=== PATIENT | female | born 1950 | race Two or more races ===

== ENCOUNTER 2021-11-19 09:30 | Inpatient (IN) | payer OTHER ==
[~2021-11-19] VITALS: Ht 167.6 cm; Wt 77.1 kg
[2021-11-19] MEDS ORDERED: KEP PO (13:04)
[2021-11-19] MEDS ORDERED: ELIQUIS PO (13:04)
[2021-11-19] MEDS ORDERED: ADALAT CC60 MG PO (13:12)
[2021-11-19] MEDS ORDERED: TOPROL XL50 M1 PO ×2 (13:12→15:46)
[2021-11-19] MEDS ORDERED: ATORVASTATIN CA40 MG PO (13:12)
[2021-11-19] MEDS ORDERED: TRAZODONE HCL150 MG PO ×2 (13:24→15:47)
[2021-11-19] MEDS ORDERED: KAPSPARGO SPRI100 MG PO (15:46)
[2021-11-26] MEDS ORDERED: ELIQUIS5 MG (13:42)
[2021-11-26] MEDS ORDERED: FAMOTIDINE20 MG (13:43)
[2021-11-26] MEDS ORDERED: LISINOPRIL2.5 MG (13:43)
[2021-11-26] MEDS ORDERED: KEPPRA1000 MG (13:43)
[2021-11-26] MEDS ORDERED: RIVASTIGMINE1 EACH (13:43)
[2021-11-26] MEDS ORDERED: SERTRALINE HCL100 MG (13:44)
[2021-11-26] MEDS ORDERED: ELIQUIS2.5 MG PO (16:59)
[2021-11-26] MEDS ORDERED: DUI500 PO (16:59)
[2021-11-26] MEDS ORDERED: PERCOCET 5-3251 EACH PO (16:59)
== END 2021-11-26 21:48 | DRG 470 ==
LOC: O/R 11-24 06:00 → SURG 11-24 06:00 → SURH 11-24 09:30 → SURG 11-24 13:11 → SURH 11-24 16:00 → SURG 11-26 21:48
PROVIDERS: ADMIT Orthopaedic Surgery; ATTEND Orthopaedic Surgery
PROC: 0SRD0J9 Replacement of Left Knee Joint with Synthetic Substitute, Cemented, Open Approach (ICD-10-PCS; principal; 2021-11-24 16:00)
DX: M17.12 Unilateral primary osteoarthritis, left knee (principal); D62 Acute posthemorrhagic anemia; M22.12 Recurrent subluxation of patella, left knee; E66.8 Other obesity; I10 Essential (primary) hypertension; Z95.0 Presence of cardiac pacemaker; Z96.652 Presence of left artificial knee joint; G40.909 Epilepsy, unspecified, not intractable, without status epilepticus; Z20.822 Contact with and (suspected) exposure to COVID-19